=== PATIENT | male | born 1970 | race Caucasian/White ===

== ENCOUNTER 2023-10-25 07:20 | Emergency (ER) | payer SELFPAY ==
[2023-10-25 07:25] LABS: Glucose - Point of Care 112 mg/dl (70-99)
[2023-10-25 07:28] VITALS: BP 173/90
[2023-10-25 07:31] VITALS: BMI 32.6
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
[2023-10-25 08:24] VITALS: BP 159/90
[2023-10-25 08:25] VITALS: BP 159/90
== END 2023-10-25 08:25 | disposition home or self-care (01) ==
LOC: EMR 07:20
PROVIDERS: EMERGENCY PHYSICIAN Emergency Medicine; FAMILY PHYSICIAN Physician Assistant Medical
DX: S39.012A Strain of muscle, fascia and tendon of lower back, initial encounter (principal); S00.01XA Abrasion of scalp, initial encounter; S50.312A Abrasion of left elbow, initial encounter; V43.52XA Car driver injured in collision with other type car in traffic accident, initial encounter; Y92.410 Unspecified street and highway as the place of occurrence of the external cause; I10 Essential (primary) hypertension; E78.00 Pure hypercholesterolemia, unspecified; E11.9 Type 2 diabetes mellitus without complications; F17.200 Nicotine dependence, unspecified, uncomplicated
CPT/HCPCS: 99283; 82962